=== PATIENT | male | born 1950 | race Caucasian/White ===

== ENCOUNTER 2021-10-02 20:53 | Inpatient (IN) | payer MEDICARE ==
[~2021-10-02] VITALS: Ht 172.7 cm; Wt 97.1 kg
--- NOTE | 2021-10-03 01:00 | NUR ---
PATIENT ARRIVED TO THE UNIT VIA STRETCHER. 2PA TO MOVE PATIENT TO BED. PATIENT IS ALERT. ORIENTED TO SELF AND SURROUNDINGS. LIMITED VERBAL RESPONSE. PATIENT REPORTS PAIN IN HIS BACK WHEN TURNING, UNABLE TO RATE OR DESCRIBE. APPEARS COMFORTABLE AT REST. HOB ELEVATED. VS COLLECTED. ADEQUATE BP. HR 110-120, AFIB. TOLERATING ROOM AIR. ORAL TEMP WNL. MAN IN PLACE. IV FLUIDS STARTED PER ORDER, SITE WNL. MODERATE EDEMA NOTED IN CHITO LOWER EXTREMITIES, SLIGHTLY MORE ON THE LEFT. LEFT GREAT TOE IS PURPLE, POSSIBLY BRUSIES. BOTH FEET ARE COLD. AREA ON GREAT LEFT TOE IS BLANCHABLE. VIEWED AREA, FOUND CHITO PULSES WITH DOPPLER. PATIENT REPORTS TOE IS "JUST A LITTLE DRY" AND DENIED INJURY.
--- NOTE | 2021-10-03 02:19 | NUR ---
patient appears to be sleeping. wakes easily when rn enters the room. vs stable. urine output adequate. patient denied needs. call light in reach.
--- NOTE | 2021-10-03 04:38 | NUR ---
PATIENT RESTING OFF AND ON. DRINKING WATER FREQUENTLY. GOOD URINE OUTPUT. ACCU CHECK, SSI PROVIDED. PATIENT DENIED ANY CONCERNS. VS STABLE.
--- NOTE | 2021-10-03 07:30 | NUR ---
REPORT RECIEVED. PATIENT IS LAYING IN BED WITH HOB ELEVATED. IVF INFUSING AT 200 ML/HR. MAN CATH PATENT WITH CLEAR YELLOW URINE NOTED.
--- NOTE | 2021-10-03 08:00 | NUR ---
ASSESSMENT COMPLETE. C/O GENERAL PAIN, RATES 8/10. IS SLOW TO ANSWERE QUESTIONS. ACCUCHECK 249, 5 UNITS HUMALOG INSULIN GIVEN. REPOSITIONED.
--- NOTE | 2021-10-03 08:30 | NUR ---
REFUSING BREAKFAST. IS SIPPING ON APPLE JUICE AND WATER. REPOSITIONED TO [facility], AT 40 DEGREE ANGLE REFUSING TO LAY ON RIGHT SIDE. C/O BACK PAIN AND R HIP PAIN WELL GENERALIZED PAIN. NO PAIN MEDICATION GIVEN AT THIS TIME. DENIES FELLING SHORT OF BREATH. REMAINS ON RA.
--- NOTE | 2021-10-03 11:00 | NUR ---
DR. FERNANDEZ HERE AND IS REVIEWING TREND OF HR. IS AWARE HR HAS BEEN > 100 MOST OF MORNING. NO FUTHER ORDERS AT THIS TIME. DIGOXIN IS DUE AT NOON. PATIENT CONTINUES TO TAKE SIPS OF WATER AND APPLE JUICE, IS REFUSING LUNCH.
--- NOTE | 2021-10-03 12:00 | NUR ---
ASSESSMENT DONE, PATIENT IS SOMEWHAT DROWSY. CONTINUES TO REFUSE LUNCH. MAN CATH PATENT. IVF DECREASED TO 150 ML/HR PER ORDERS. DIGOXIN 250 MCG IV GIVEN SLOWLY OVER 10 MIN. IS VERY STIFF TO MOVE. PATIENT STATES HE HAS NOT BEEN DOING ANY PHYS THERAPY, ATTEMPED TO DO RANGE OF MOTION, PATIENT VERY RESISTANT.
--- NOTE | 2021-10-03 12:20 | NUR ---
PATIENT DAUGHTER IS HERE TO SEE PATIENT, PATIENT IS RESTFUL.
--- NOTE | 2021-10-03 14:30 | NUR ---
NO CHANGES. IVF INFUSING AT 150 ML/HR. MAN CATH PATENT.
--- NOTE | 2021-10-03 16:00 | NUR ---
ASSESSMENT UNCHANGED. PATIENT NOT TAKING PO WELL THIS AFTERNOON. DENIES NAUSEA, HAS BACK PAIN, ABD PAIN WITH PALPATION. RESISTANT TO REPOSITIONING. REFUISNG ORAL CARE.
--- NOTE | 2021-10-03 16:20 | NUR ---
DR. FERNANDEZ PHONED IN TO CHECK ON PATIENT. ORDERS RECIEVED TO DECREASE IVF TO 50 ML/HR. THIS DONE. NO FUTHER CHANGES.
--- NOTE | 2021-10-03 18:30 | NUR ---
YELLED OUT IN PAIN WHEN ATTEMPTING TO REPOSITION. HAVING INCREASED BACK PAIN WITH MOVEMENT.
--- NOTE | 2021-10-03 19:05 | NUR ---
BLOOD CULTURE RESULTS CALLED TO DR. FERNANDEZ. NO FUTHER ORDRES AT THIS TIME. REPORT TO NEXT SHIFT.
--- NOTE | 2021-10-03 19:30 | NUR ---
RECEIVED REPORT FROM CESAR BAUER. pt RESTING IN BED ON LEFT SIDE. REPORTED 8/10 PAIN IN BACK. OFFERED ASSISTANCE TO REPOSITION, pt REFUSED. WHITEBOARD UPDATED. CALL LIGHT WITHIN REACH.
--- NOTE | 2021-10-03 20:30 | NUR ---
IN TO DO ASSESSMENT. pt RESTING ON LEFT SIDE. ASSESSMENT DONE. FOUND PEDIAL PULSES WITH DOPPLER. PRN PAIN MEDICATION FOR 8/10 BACK PAIN. IV ANTIBIOTIC INFUSING. pt ALLOWED REPOSITIONING MORE ON LEFT SIDE, SUPPORTED BACK WITH PILLOW. MAN CARE DONE. CALL LIGHT WITHIN REACH.
--- NOTE | 2021-10-03 22:10 | NUR ---
PT ARRIVED TO FLOOR VIA STRETCHER. VS COMPLETED. MAGDA WNL. PT REPOSITIONED. JUICE PROVIDED. IV FLUIDS INFUSING PER ORDER. NO OTHER NEEDS. CALL LIGHT IN REACH.
--- NOTE | 2021-10-04 | NUR ---
PT RESTING IN BED. IV FLUIDS INFUSING PER ORDER. CALL LIGHT IN REACH.
--- NOTE | 2021-10-04 02:55 | NUR ---
PT HAS 8/10 BACK PAIN, PRN PAIN MED PROVIDED. PT REPOSITIONED. ASSESSMENT COMPLETED. PT IS CONFUSED ABOUT WHY HE IS HERE, EDUCATION PROVIDED. [facility] 15, ORIENTED TO PERSON AND PLACE ONLY AND PT HAS EXPRESSIVE DYSPHASIA. LUNGS CLEAR ON RIGHT SIDE. LEFT LUNG LOBES HAVE AND EXPIRATORY WHEEZE. IV WNL, IV FLUIDS INFUSING PER ORDER. GENERALIZED EDEMA IN RIGHT HAND. LLE HAS 2+ EDEMA AND RLE HAS 1+ EDEMA. LEFT BIG TOE DOSCOLORATION NOTED, PT DENIES PAIN IN TOE. CMS INTACT WITH DORSAL FOOT PULSES WEAK. SCATTERED ABRASIONS NOTED. AND SOFT, NONTENDER, BOWEL TONES ACTIVE. MAN WNL. APPLE JUICE PROVIDED BY FRANCO MYRICK. NO OTHER NEEDS AT THIS TIME. CALL LIGHT IN REACH.
--- NOTE | 2021-10-04 05:35 | NUR ---
SCHEDULED MEDS PROVIDED. NO OTHER NEEDS. CALL LIGHT IN REACH.
--- NOTE | 2021-10-04 07:30 | NUR ---
REPORT RECIEVED FROM JUANCARLOS SCHRADER. PT AWAKE AND STATES HE IS TIRED.
--- NOTE | 2021-10-04 09:42 | NUR ---
PATIENT REPOSITIONED ON TO LEFT SIDE WITH PILLOW UNDER RIGHT HIP. VITALS AND I&O'S CHARTED. FRESH WATER GIVEN. PATIENT SAID BED BATH MAYBE LATER DEPENDING ON HOW HE FEELS. CALL LIGHT IN REACH. NO FURTHER NEEDS AT THIS TIME.
--- NOTE | 2021-10-04 10:44 | NUR ---
ADMINISTERED TYLENOL AND IV LOPRESSOR. PT RATES PAIN IN FLANKS 9\10. STATES IT FEELS THE SAME THE LAST TIME HE HAD A KIDNEY INFECTION.
--- NOTE | 2021-10-04 11:16 | NUR ---
Kwame states that his only home medication is insulin. Phoned [facility] pharmacy, which he stated was his pharmacy of choice, and they have no fill history. Med rec completed by pharmacy.
--- NOTE | 2021-10-04 11:40 | NUR ---
PT WORKING IWTH OFFICE BOOKKEEPER AFTER WORKING WITH FACTORY MAINTENANCE TECHNICIAN.
--- NOTE | 2021-10-04 12:59 | NUR ---
Per Dr. Torres patient will need to DC to SNF for continued PT. Pt is aware of the plan and states that he has no preference of which SNF to discharge to. He states he will go to [facility], [facility], [facility], or [facility], depending on where placement can be found. Pt reports that he has had a stroke and that if we have any medical questions regarding advanced directive or POLST form, we should talk to his daughter Haim Mariee. Pt will not discharge today. Pt does not have any questions for me at this time.
--- NOTE | 2021-10-04 13:50 | NUR ---
PATIENT IN BED WATCHING TV. VITALS AND I&O'S CHARTED. MAN CATH TAKEN OUT UPON MD DC ORDER AND RN REQUEST, RN NOTIFIED WHEN DONE. CALL LIGHT IN REACH. NO FURTHER NEEDS AT THIS TIME. PATIENT REFUSED BED BATH AT THIS TIME.
--- NOTE | 2021-10-04 13:51 | NUR ---
PT ALERT, TV ON. PT HAS FLAT AFFECT, BUT DOES ANSWER APPROPRIATELY. PT DID MENTION HE HAS HAD LITLE SLEEP, AND HIS PAIN IS A 9. PASSED THIS INFO ON TO JUANCARLOS RIDER. SHE WILL SEE IF HE CAN HAVE SOMETHING FOR PAIN. GAVE BLESSING, AND ENCOURAGEMENT. WILL FOLLOW
--- NOTE | 2021-10-04 14:28 | NUR ---
SPOKE WITH DAUGHTER AGAIN. STATES THAT HER DAD CAN GET UP AND WALK AROUND, SHOWERS SELF AND TAKES SELF TO RESTROOM.
--- NOTE | 2021-10-04 16:10 | NUR ---
ROLLED PT IN BED TO CHANGE CHUCKS UNDERNEATH HIM. PT WAS IRRITATED THAT HIS DAUGHTER HAD TOLD US THAT HE CAN WALK. DOES NOT WANT TO GET UP TO USE THE COMMODE OR SIT INTHE CHAIR.
--- NOTE | 2021-10-04 18:28 | NUR ---
PT ASSISTED TO PIVOT TO COMMODE AND THEN CHAIR. WHERE HE SAT FOR 1.5 HOURS. PT TOLERATED WELL ALTHOUGH DID NOT LIKE. PT THEN CALLED HE HAD A BM IN THE CHAIR. CLEANED UP AND ASSISTED BACK TO BED. HAD ALSO DUMPED URINE OUT OF THE URINAL INTO THE BED PRIOR TO BSC.
--- NOTE | 2021-10-04 19:29 | NUR ---
REPORT RECEIVED FROM JUANCARLOS RIDER. HR 78-85 ON TELE 6. pt RESTING IN BED.
--- NOTE | 2021-10-04 20:32 | NUR ---
pt INCONTINENT OF URINE. ATTENDS CHANGED. REPOSITIONED HIGHER IN BED AND TO RIGHT SIDE WITH PILLOW UNDER LEFT HIP. NO REDNESS NOTED ON BACKSIDE. ASSESSMENT COMPLETE. IV SITE FLUSHED WNL AND IV ANTIBIOTIC INFUSING ORDERED. VSS. SCHEDULED MEDICATION ADMINISTERED. pt C/O 07/06 PAIN IN BACK. PRN TYLENOL ADMINISTERED. CALL LIGHT IN REACH. LEGS ELEVATED.
--- NOTE | 2021-10-04 22:11 | NUR ---
PT CALLED, ABX COMPLETE. ASSISTED WITH HIS SNACK. NO OTHER NEEDS AT THIS TIME.
--- NOTE | 2021-10-04 23:28 | NUR ---
PATIENT CALLED. ASKED SOMETHING TO EAT AND DRINK. DIET SODA, ICE WATER AND CRACKERS PROVIDED.
--- NOTE | 2021-10-05 00:32 | NUR ---
pt RESTING IN BED AWAKE. ASSISTED TO DRINK WATER. NO ADDITIONAL NEEDS. CALL LIGHT IN REACH.
--- NOTE | 2021-10-05 02:23 | NUR ---
IN pt ROOM FOR MEDICATION ADMINISTRATION. HR 88-100S. IRREGULAR RHTYHM, AFIB ON TELE 6. ASSESSMENT COMPLETE. pt RATES PAIN 8/10 IN MID BACK. PRN TYLENOL ADMINISTERED. INCONTINENT OF URINE, RUSH PAD CHANGED. pt REPOSITIONED TO FLOATING, PILLOWS UNDER BOTH HIPS. pt GRIMACES WITH MOVEMENT. DIET SPRITE PROVIDED. NO ADDITIONAL NEEDS. CALL LIGHT IN REACH.
--- NOTE | 2021-10-05 06:42 | NUR ---
PT AWAKE AFTER LAB DRAW. 2PA TO CHANGE ATTENDS AND CHUX, INCONTINENT OF URINE. REPOSITIONED IN BED WITH PILLOW UNDER LEFT HIP TO RIGHT SIDE LYING. HOB ELEVATED. PRN PAIN MEDICATION ADMINISTERED FOR 8/10 REPORTED BACK PAIN. pt HEAVY ASSIST WITH TURNS. ICE WATER PROVIDED. CALL LIGHT IN REACH.
--- NOTE | 2021-10-05 07:05 | NUR ---
Report received from Suki BAUER, pt resting in bed with no needs, will continue plan of care
--- NOTE | 2021-10-05 08:00 | NUR ---
PATIENT UP TO CHAIR, 2PA GAITBELT. LINENS CHANGED. WARM BLANKET GIVEN. RUSH CARE DONE. NEW ATTENDS IN PLACE. CALL LIGHT IN REACH. NO FURTHER NEEDS AT THIS TIME.
--- NOTE | 2021-10-05 08:05 | NUR ---
Scheduled medications administered, CBG checked, SS insulin provided. Assessment complete. Pt transfers with 2PA, gait belt and FWW to chair for breakfast. SN Marina in room to assist. IV WNL. VSS complete.
--- NOTE | 2021-10-05 10:00 | NUR ---
Spoke with Kwame and discussed what his needs and wants are. Let him know I had spoken with his daughter earlier. She states he cares for self at home. He walks in the home and has a walk in shower. Pt is able to shower self and Edelmira helps him dress his lower body. Pt is telling therapies he is unable to walk. Pt states he is wanting placement. We discussed placement would be for PT and he will need to participate. We then discussed if he is wanting placement for cg, he would need an assisted living. Pt states he cannot pay. We discussed medicaid and steps to proceed with eval through [facility]. Pt wanting daughter to do this for him. States he doesn't know how to get access to his financials. Per daughter she has access on her phone. Daughter will contact Davina L[facility]. I recieved a message from [facility] and they had questions regarding pt. Attempted to return call, but unable to contact. Will follow up to check if they are accepting this pt.
--- NOTE | 2021-10-05 10:45 | NUR ---
IV ABX infusing WNL, one time dose 12.5mg metoprolol administered per verbal order from MD for sustained HR 120-140s. Echo complete. Pt repositioned in bed and tele in place, call light in reach
--- NOTE | 2021-10-05 12:00 | NUR ---
CBG checked, SS insulin provided, pt denies lunch at this time but drinks diabetic friendly ensure.
--- NOTE | 2021-10-05 12:38 | NUR ---
JUANCARLOS ST JSUT LEAVING RM, BUT WILL BE COMING BACK. SN IN RM WITH PT. PT LAYING ON L SIDE, VERY FEEBLE RESPONSE. JUANCARLOS ST NEEDING TO CONTINUE CARE GAVE BLESSING AND ENCOURAGEMENT. WILL FOLLOW
--- NOTE | 2021-10-05 13:10 | NUR ---
Attempted to call Berkley at [facility]. She is gone for lunch. Will call her later. Received a call from pts daughter and she has not been able to reach [facility], clarified phone number and gave her the correct number.
--- NOTE | 2021-10-05 14:07 | NUR ---
PATIENT HAD INCONT. VOID. THIS CREEL CLERK AND AERONAUTICS TEACHER IN TO CHANGE PATIENT. [facility] CARE DONE. NEW ATTENDS IN PLACE. VITALS TAKEN BY AERONAUTICS TEACHER. CALL LIGHT IN REACH. NO FURTHER NEEDS AT THIS TIME.
--- NOTE | 2021-10-05 15:07 | NUR ---
Scheduled lopressor and IV ABX infusing. Pt resting in bed watching tv and resting. States no needs at this time. Grimace noted when raised HOB to take pills, pt states tolerable pain level and denies needing PRN. Call light in reach
--- NOTE | 2021-10-05 17:03 | EKG ---
[facility] [address] [place], [place] [address] Signed Atrial fibrillation with rapid ventricular response Left axis deviation Right bundle branch block Inferior infarct , age undetermined Abnormal ECG No previous ECGs available Confirmed by BRUCE SHAH DO ([id number]) on 10/05/2021 5:03:21 PM Electronically Signed By: BRUCE SHAH DO 10/05/21 1703 PATIENT NAME: RUBIN ZHANG Electrocardiogram DATE OF : 54 PHYSICIAN: BRUCE SHAH DO REPORT #: [id number] REPORT IS CONFIDENTIAL AND NOT TO BE RELEASED WITHOUT AUTHORIZATION
--- NOTE | 2021-10-05 17:30 | NUR ---
medications administered, pt resting in bed, drowsy but oriented, IVF infusing WNL
--- NOTE | 2021-10-05 18:57 | NUR ---
PATIENT IN BED RESTING. PATIENT HAD INCONT. VOID. RUSH CARE DONE. NEW ATTENDS IN PLACE. VITALS AND I&O'S CHARTED. FRESH WATER GIVEN. CALL LIGHT IN REACH. NO FURTHER NEEDS AT THIS TIME.
--- NOTE | 2021-10-05 19:24 | NUR ---
REPORT RECEIVED FROM JUANCARLOS ST. pt RESTING IN BED. NO DISTRESS NOTED. HR IIREGULAR 81-89 ON TELE.
--- NOTE | 2021-10-05 21:46 | NUR ---
PT INCONTINENT OF URINE, ATTENDS AND CHUX CHANGED. LARGE VOID. 2PA WITH RAMEZ GAMEZ TO REPOSITION IN BED, PILLOWS UNDER LEFT HIP AND LEGS ELEVATED. ASSESSMENT COMPLETE. pt RATES PAIN 8/10 IN BACK. PRN TYLENOL ADMINISTERED. IV SITE FLUSHED WNL, IV ANTIBIOTIC INFUSING WNL. CALL LIGHT IN REACH. pt REQUESTING YOGURT, GLOBAL HUMAN RESOURCES DIRECTOR RN NOTIFIED.
--- NOTE | 2021-10-05 21:55 | NUR ---
NEGRA WARNER. PATIENT REPOSITIONED TO HIS LEFT SIDE.
--- NOTE | 2021-10-06 00:35 | NUR ---
CHECKED ON pt. RESTING IN BED ON LEFT SIDE, BREATHING UNLABORED. NO DISTRESS NOTED.
--- NOTE | 2021-10-06 02:20 | NUR ---
pt SLEEPING, AWAKENS TO VOICE FOR SCHEDULED MEDICATION ADMINISTRATION. VSS. ASSESSMENT COMPLETE. pt DENIES PAIN. ATTENDS CHANGED, INCONTINENT OF URINE. REPOSITIONED TO FLOATING WITH PILLOWS UNDER BOTH HIPS. IV SITE FLUSHED WNL, IV ANTIBIOTIC INFUSING. CALL LIGHT WITHIN REACH. LIGHTS OFF IN ROOM.
--- NOTE | 2021-10-06 06:51 | NUR ---
pt SLEEPING, AWAKENS TO VOICE. IV ANTIBIOTIC INFUSING WNL. INCONTINENT OF LARGE VOID. ATTENDS AND CHUX CHANGED. REPOSITIONED IN BED. PILLOW UNDER RIGHT HIP. CALL LIGHT IN REACH. ICE WATER PROVIDED.
--- NOTE | 2021-10-06 06:55 | NUR ---
V/S AND I&O DONE. 2 PA CHANGED ATTENDS. APPLIED BARRIER CREAM. PATIENT REPOSTIONED TO HIS COMFORT. PATIENT DO NOT WANT TO HAVE BREAKFAST ORDER.
--- NOTE | 2021-10-06 07:16 | NUR ---
Report received from Suki BAUER. Pt resting in bed, no needs identified at this time, call light in reach. Will continue plan of care
--- NOTE | 2021-10-06 07:35 | NUR ---
CBG checked 148. Pt signs MRI consent witnessed by this RN. Breakfast ordered. Pt awakens to voice and answers questions after asked several times. Pt agreeable to plan of care.
--- NOTE | 2021-10-06 08:20 | NUR ---
PT SLEEPING. UPDATED WHITE BOARD. WILL CHECK BACK IN WITH PT SHORTLY. CALL LIGHT WITHIN REACH.
--- NOTE | 2021-10-06 09:15 | NUR ---
SS insulin provided, 10 unit scheduled held for CBG of 148, pt has been refusing meals, will drink ensure. Pt reports 10/10 back pain with roll change of attends, PRN tylenol administered. Pt prepares to go to MRI. MD notified of pain level and 2mg morphine administered as a one time order. Pt tearful and states he is "requesting euthanasia". This RN reassures patient and discusses care plan, pt is agreeable at this time. He states his daughter, Edelmira, may be able to come visit him. This RN called Edelmira and she states she will come in or call him today.
--- NOTE | 2021-10-06 10:30 | NUR ---
IV ABX infusing, pt resting in bed after MRI, lunch ordered. pt is agreeable at this time and states no needs. Fresh water provided, call light in reach
--- NOTE | 2021-10-06 10:40 | NUR ---
Spoke with Dr. Bishop and pt will not be dischargable for 1-2 more days. Pt will need IV antibiotics for 2 weeks. Called and updated Berkley at [facility].
--- NOTE | 2021-10-06 11:15 | NUR ---
Discussed plan of care with patient's daughter Edelmira. She is concerned patient is depressed and does not want to continue treatment. Edelmira is agreeable to plan of care at this time, states she will come in to see her father tomorrow.
--- NOTE | 2021-10-06 12:00 | NUR ---
Update from Dr. Bishop. Pt has abcesses in his back. He will call daughter to discuss.
--- NOTE | 2021-10-06 12:30 | NUR ---
CBG checked, SS insulin administered. Pt lunch delivered. Pt drowsy but answers questions appropriately.
--- NOTE | 2021-10-06 13:07 | NUR ---
ENTERED PT'S RM WHILE JUANCARLOS ST WAS CARING FOR PT. IS WAS IN BED, VERY FLAT AFFECT. BARELY COULD GET A RESPONSE FROM PT. DID ACKNOWLEDGED PAIN AT AN 8. JUANCARLOS ST WILL FOLLOW UP. PT ALSO GOT LITTLE SLEEP.HAD PRAYER WITH PT, WILL FOLLOW.
--- NOTE | 2021-10-06 14:19 | NUR ---
PT STILL WORKING ON LUNCH. WILL RETURN FOR I&O'S SOON. PT EATING AND SLEEPING INTERMITTENTLY. CALL LIGHT WITHIN REACH, NO FURTHER NEEDS AT THIS TIME
--- NOTE | 2021-10-06 14:30 | NUR ---
Medicated patient with 10mg PRN oxycodone. He states he is still having 8/10 pain to back, repositioned in bed. No further needs, call light in reach.
--- NOTE | 2021-10-06 14:54 | NUR ---
PT REFUSED BED BATH. JUANCARLOS ST NOTIFIED.
--- NOTE | 2021-10-06 17:30 | NUR ---
THIS OFFICE ELECTRICIAN AND JUANCARLOS ST GAVE PT BB WHILE CHANGING PT'S BRIEF. PT NOW IN CLEAN GOWN WITH DINNER TRAY.
--- NOTE | 2021-10-06 18:03 | NUR ---
CBG checked, insulin provided to patient. Dinner brought in, pt refuses dinner but drinks ensure. VS and I/O's complete. Attends changed, elsie care done, bed bath complete with AERONAUTICAL DESIGN ENGINEER assistance. IV ABX infusing. Warm blanket provided. Call light in reach.
--- NOTE | 2021-10-06 19:30 | NUR ---
SHIFT REPORT RECEIVED FROM DINA BAUER. PT RESTING IN BED. IV MEDS INFUSING. NO NEEDS AT THIS TIME. CALL LIGHT IN REACH.
--- NOTE | 2021-10-06 20:42 | NUR ---
ASSESSMENT, VS AND I&O COMPLETED. PT ORIENTED TO PERSON AND PLACE. ANSWERS YES/NO QUESTIONS. BACK PAIN 6/10, PRN PAIN MED PROVIDED. SCHEDULED MEDS PROVIDED. LUNGS CLEAR IN UPPER LOBES AND CLEAR/DIM IN LOWER LOBES. HEART TONES REGULAR. ABD SOFT, NONTENDER, BOWEL TONES ACTIVE. PT MOANS IN PAIN WITH REPOSITIONING. CMS INTACT. LLE 2+ EDEMA, RLE 1+ EDEMA. LEFT GREAT TOE DISCOLORATION NOTED. IV WNL, CDI, FLUSHED WELL. NO OTHER NEEDS. CALL LIGHTIN REACH.
--- NOTE | 2021-10-06 21:20 | NUR ---
provided pt with ensure plus, pt drank all of ensure and some water.
--- NOTE | 2021-10-06 22:27 | NUR ---
SCHEDULED MED PROVIDED. NO OTHER NEEDS. CALL LIGHT IN REACH.
--- NOTE | 2021-10-07 00:01 | NUR ---
PT RESTING IN BED. IV MED COMPLETED. IV WNL. PT REPOSITIONED. CALL LIGHT IN REACH.
--- NOTE | 2021-10-07 02:05 | NUR ---
VS COMPLETED. SCHEDULED MEDS PROVIDED. IV WNL. PT REPOSITIONED. WATER PROVIDED. NO OTHER NEEDS. CALL LIGHT IN REACH.
--- NOTE | 2021-10-07 04:10 | NUR ---
IV PUMP ALARMING, RESOLVED. IV WNL. ASSESSMENT COMPLETED. PT DENIES PAIN., DECLINES WATER AND DECLINES TO BE REPOSITIONED. LUNGS CLEAR AND DIM IN ALL LOBES. LLE 2+, RLE 1+ EDEMA. LEFT GREAT TOE UNCHANGED, DENIES PAIN. NO OTHER NEEDS. CALL LIGHT IN REACH.
--- NOTE | 2021-10-07 06:01 | NUR ---
VS AND I&O COMPLETED. ICE WATER PROVIDED. PT BRIEFS CHANGED,VERY PAINFUL FOR PT TO ROLL SIDE TO SIDE. REPOSITIONED. PT TEARFUL THIS MORNING. NO OTHER NEEDS. CALL LIGHT IN REACH.
--- NOTE | 2021-10-07 07:59 | NUR ---
IN TO SEE PT AM MEDS AND ASSESSMENT DUE. PT LAYING ON LEFT SIDE. BREAKFAST DELIVERED TO ROOM. PATIENT REPORTS 8/10 PAIN TO BACK, PT REPORTS PAIN IS TOELRAABLE, DECLINES PAIN MANAGEMENT AT THIS TIME. PT RESPONSVIVE AND VERBALIZING NEEDS AND RESPONSES APPROPIATE. NO OTHER CONCENRS OR REQUESTS A T THIS TIME. PT EATING BREAKFAST ATT HSI TIME. BED RAILS X 2 UP. CALL LIGHT IN REACH.
--- NOTE | 2021-10-07 09:15 | NUR ---
PT. C/O FEELING "HOT". WHEN ASSESSED, HE STATES HIS RT. GROIN FEELS WARM AND PAINFUL. GROIN IS REDDENED. ATTENDS CHANGED, PT. CLEANED AND BARRIER CREAM APPLIED. PT. ASSISTED WITH REPOSITIONING. PT. LEFT RESTING WITH CALL LIGHT IN REACH.
--- NOTE | 2021-10-07 09:31 | NUR ---
IN TO CHECK ON PT. PT REPORTED TO NURSING INSTRUCTED "I AM BURNING." PT REPORTED TO CHALINO RN "I AM BURNING IN MY GROUIN." GROIN ASSESSED. RUSH AREA CLEANED AND HAS WITH SOME REDNESS LIKLY R/T BRIEF BEING TOO TIGHT. BARRIER CRAM APPLIED AND BRIEF LOOSENED. PT REPOSTIONED MORE TO THE LEFT SIDE. GOWN CHANGED. NO SKIN BREAKDOWN NOTED TO BACK OR BUTTOCKS AT THIS TIME. NO OTHER CONCERNS OR REQUESTS AT THIS TIME. BED RAILS X 4 UP. CALL LIGHT IN REACH.
--- NOTE | 2021-10-07 11:35 | NUR ---
IVF STARTED. HORSEBACK RIDING INSTRUCTOR IN THE ROOM DRAWING BLOOD CULTURES. PT. DENIES PAIN AT THIS TIME. CONTINUES TO BE DIAPHORETIC, BUT AFEBRILE. LEFT RESTING WITH CALL LIGHT IN REACH
--- NOTE | 2021-10-07 12:10 | NUR ---
PT. ASSISTED BY 2 RNS TO REPOSITION. HE STATES "I'M NOT DOING WELL" AND RATES BACK PAIN /. OXYCODONE ADMIN. PT. ASSISTED WITH LUNCH. HE IS ABLE TO HOLD FORK, BUT HAS TROUBLE KEEPING FOOD ON IT. ASSISTED WITH EATING. PT. CONTINUES TO BE DIAPHORETIC BUT IS AFEBRILE. LEFT RESTING WITH CALL LIGHT IN REACH.
--- NOTE | 2021-10-07 13:09 | NUR ---
IN TO CHECK ON PT. PT LAYING ON HIS LEFT SIDE WITH EYES CLOSED. PT WAKENS EASILY TO VOICE STIMULI. PT REPORTED "I AM DONE, I DONT THINK I WANT ANYMORE." PT REQUEST FRESH ICE WATER, THIS NURSE BROUGHT IN FRESH ICE WATER FOR PT. PT ACCEPTED 100% ENSURE AND 10% OF HIS LUNCH. NO OTHER CONCERNS OR REQUESTS AT THIS TIME. BED RAILS X 4 UP. CALL LIGHT IN REACH.
--- NOTE | 2021-10-07 13:50 | NUR ---
PT ASLEEP, DID NOT DISTURB. WILL CHECK BACK
--- NOTE | 2021-10-07 14:29 | NUR ---
Attempted to see pt at 1145 and he is sleeping. Called daughter now and discussed moth exterminator plan. She cont. to want to hear what a neurologist would recommend. She feels like her father will decline any treatment. She states she has a baby and is 4 months and she will not be able to provide care for her dad if he is unable to walk. She has not contacted [facility] to start the process for medicaid. I again encouraged her to do this as it is a 45 day process. She is stating pt does not have money to pay the first month out of pocket. She states pt cannot return home on hospice and would like him placed to SNF or [facility]. She states she will contact [facility] tomorrow to start eval for medicaid. We did discuss she may need to take her father home for a brief time until arrangements can be made for payment to an [facility].
--- NOTE | 2021-10-07 16:32 | NUR ---
pt. reports 09/05 backpain. admin. oxycodone. assisted with repositioning. left resting with call light in reach
--- NOTE | 2021-10-07 16:40 | NUR ---
PT. C/O 09/05 BACK PAIN. ADMIN. OXYCODONE. ATTENDS AND CHUX SATURATED. PT. CLEANED, CHANGED AND BARRIER CLEAN APPLIED. HE WAS THEN REPOSITIONED. DENIES FURTHER NEEDS. LEFT RESTING WITH CALL LIGHT IN REACH.
--- NOTE | 2021-10-07 19:15 | NUR ---
NEREIDA HELPED ME CHANGED THE PATIENT. DID [facility]. PUT CREAM ON.
--- NOTE | 2021-10-07 19:23 | NUR ---
SHIFT REPORT RECEIVED FROM CHALINO BAUER. PT RESTING IN BED. IV FLUID INFUSING PER ORDER. NO OTHER NEEDS. CALL LIGHT IN REACH.
--- NOTE | 2021-10-07 19:34 | NUR ---
ASKED PATIENT IF HE WOULD LIKE TO TAKE A BED BATH TODAY AND HE SAID NO. DID HIS BLOOD SURGAR CHECKS BREAKFAST, LUNCH AND DINNER.
--- NOTE | 2021-10-07 20:30 | NUR ---
IN TO GET VITALS, ICE WATER FILLED, PT HAD SMALL INCONT IN PERIPAD, CHANGED, PT DENIED WANTING REPOSITIONING, NO FURHTER NEEDS AT THIS TIME
--- NOTE | 2021-10-07 20:58 | NUR ---
ASSESSMENT, VS AND I&O COMPLETED. IV WNL, CDI, FLUSHED WELL. IV FLUIDS INFUSING PER ORDER. RUSH PADS CHANGED, PT DECLINES TO BE REPOSITIONED. ICE WATER PROVIDED. SCHEDULED MEDS PROVIDED. PT DENIES PAIN AT REST. LUNGS CLEAR BUT DIM IN ALL LOBES. HEART TONES REGULAR. ABD SOFT, NONTENDER, BOWEL TONES ACTIVE. CMS INTACT. LEFT GREAT TOES BRUISING NOTED. LLE 2+ EDEMA, RLE 1+ EDEMA, RIGHT HAND GENERALIZED EDEMA. NO OTHER NEEDS. CALL LIGHT IN REACH.
--- NOTE | 2021-10-07 21:59 | NUR ---
pt repositioned. scheduled med provided. iv wnl. no other needs. call light in reach.
--- NOTE | 2021-10-08 00:05 | NUR ---
ASSISTING PT WITH WATER, GUIDED PT'S HAND AND CUP UP TO MOUTH PT LIFTED, PT MAINTAING ROUGH ROUNDER ON CUP WHILE THIS SHOE REPAIR COBBLER TRIED TO GET PT TO SET CUP ON TABLE, TABLE CLOSER FOR PT TO REACH CUP NEEDED, PT REQUESTING HOB REMAINING UP, NO FURTHER NEEDS AT THIS TIME
--- NOTE | 2021-10-08 00:06 | NUR ---
IV PUMP ALARMING, NEW BAG OF IV FLUIDS PROVIDED. PT REPOSITIONED. ICE WATER PROVIDED. NO OTHER NEEDS. CALL LIGHT IN REACH.
--- NOTE | 2021-10-08 02:10 | NUR ---
SCHEDULED MED PROVIDED. ICE WATER PROVIDED. RUSH PAD CHANGED. PT DENIES PAIN AT REST, HAS PAIN WITH REPOSITIONING BUT DECLINES MEDICATION FOR PAIN. IV WNL. NO OTHER NEEDS. CALL LIGHT IN REACH.
--- NOTE | 2021-10-08 04:20 | NUR ---
IN TO GET VITALS, CHANGED PTs ATTENDS AND NEW CHUX IN PLACE, WATER PROVIDED, NO FURTHER NEEDS
--- NOTE | 2021-10-08 04:52 | NUR ---
ASSESSMENT, VS AND I&O COMPLETED. PT REPOSITIONED AND BRIEFS CHANGED. THIS WAS VERY PAINFUL, 10/10 FOR PT. PRN PAIN MED PROVIDED. PT CRYING, THERAPUTIC COMMUNICATION PROVIDED. PT IS TALKING MORE THIS MORNING. LUNGS CLEAR AND DIM IN ALL LOBES. ABD FIRM, NONTENDER, BOWEL TONES ACTIVE. PT STATES YES WHEN ASKED IF HE FEELS CONSTIPATED, NIO BOWEL ROUTINE STARTED. GROIN AND TESTES HAVE REDNESS, BARRIER CREAM APPLIED. COCCYX RED BUT BLANCAHABLE. LEFT GREAT TOE UNCHANGED. CMS INTACT. ICE WATER PROVIDED. IV WNL, IV FLUIDS INFUSING PER ORDER. NO OTHER NEEDS. CALL LIGHT IN REACH.
--- NOTE | 2021-10-08 05:43 | NUR ---
SCHEDULED MED PROVIDED. PT RESTING WITH EYES CLOSED. RR EVEN, UNLABORED. CALL LIGHT IN REACH.
--- NOTE | 2021-10-08 06:41 | NUR ---
PT DECLINES REPOSITIONING. CHAPSTICK PROVIDED. DRINK PROVIDED. BREAKFAST ORDER COMPLETED. NO OTHER NEEDS. CALL LIGHT IN REACH.
--- NOTE | 2021-10-08 06:50 | NUR ---
IN TO CHANGE PT WITH SECOND TECHNICAL PRODUCT MANAGER'S ASSISTANCE, FLOATED PT WITH PILLOW TO BOTH HIPS, NO FURTHER NEEDS AT THIS TIME
--- NOTE | 2021-10-08 08:00 | NUR ---
Shift report received from JUANCARLOS Corcoran, pt resting in bed safely w/ call light in reach, pt denies any needs at this time.
--- NOTE | 2021-10-08 10:00 | NUR ---
Pt resting in bed safely w/ call light in reach. Pt declined to eat breakfast but was agreeable to drinking an ensure. Pt incont of urine, RAMEZ Canales and this nurse performed elsie care and changed attends. Pt repositioned higher in the bed and turned onto left side, floated w/ pillows. Morning assesment complete, scheduled meds given, and IV fluids and abx infusing per provider orders. Pt denies any other needs at this time
--- NOTE | 2021-10-08 10:00 | NUR ---
Attempted to speak with pt, eyes are open, but he does not response to conversation. Spoke with Davina Lira from [facility] and she has been contacted by daughter. Updated pt will need SNF for 6 weeks antibiotics and she let me know it should not be a problem for medicaid and asked I pass this on the [facility]. Attempted to call Berkley at the SNF, she is not in today. Will fax updated notes.
--- NOTE | 2021-10-08 11:54 | NUR ---
PATIENT REFUSING TO EAT SOME MEALS OR EATS ONLY 10% BUT WILL DRINK ENSURE. HE IS ON A 60 GM CONSISTENT CARB DIET. CONTINUE TO PROVIDE ENSURES DUE TO POOR FOOD INTAKE.
--- NOTE | 2021-10-08 12:00 | NUR ---
Pt resting in bed safely w/ call light in reach. Pt denies any needs at this time
--- NOTE | 2021-10-08 12:08 | NUR ---
CHECKED ON PT-COULD NOT GET A RESPONSE FROM HIM. AN OCCASIONAL MOAN, OPEN AN EYE. COULD NOT GET PT TO RESPOND. GAVE CAPRICEING, WILL FOLLOW
--- NOTE | 2021-10-08 14:30 | NUR ---
PT RESTING IN BED SAFELY W/ CALL LIGHT IN REACH, PT INCONT OF URINE, RAMEZ CARR AND THIS NURSE PERFORMED RUSH CARE AND CHANGED ATTENDS. VSS ON RA, IV FLUIDS AND ABX INFUSING PER PROVIDER ORDERS.
--- NOTE | 2021-10-08 16:00 | NUR ---
PT RESTING IN BED W/ CALL LIGHT IN REACH. BED BATH COMPLETED BY THIS NURSE AND TRIM CARPENTER BRUNO, LINENS AND GOWN CHANGED. PT REPOSITIONED HIGHER IN THE BED AND FLOATED WITH PILLOWSON BOTH SIDES. PT DENIED PAIN OR ANY OTHER NEEDS AT THIS TIME.
--- NOTE | 2021-10-08 18:00 | NUR ---
Pt HAS REFUSED TO EAT ALL MEALS TODAY BUT HAS DRANK ENSURES INSTEAD. Pt VERY FLAT AND WITHDRAWN, HAS DECLINED TO WORK W/ PT OR OT TODAY AND NEEDS MULTIPLE PROMTS TO RESPOND TO QUESTIONS OR TO FOLLOW COMMANDS. PT NOW REQUIRING 1L O2 VIA NC DUE TO SHALLOW BREATHING.
--- NOTE | 2021-10-08 19:21 | NUR ---
Sayra care was done. Arms and both hips are floated. Call light is in reach.
--- NOTE | 2021-10-08 21:00 | NUR ---
PATIENT IS FLOATED UP ON PILLOWS AND IS RESTING QUIETLY. RESPIRATIONS ARE REGULAR AND EVEN, EYES ARE CLOSED, AND CALL LIGHT IS IN REACH. PATIENT HAS NO CURRENT CARE NEEDS AT THIS TIME.
--- NOTE | 2021-10-08 23:09 | NUR ---
PATIENT TURNED TO HIS RIGHT SIDE AFTER ATTENDS CHANGED FOR LARGE INCONTINENCE OF URINE. PATIENT GIVEN TYLENOL AND OXYCODONE FOR 5/10 PAIN. PATIENT NONVERBAL THOUGH DRANK FLUIDS WHEN GLASS HELD FOR HIM. PATIENT HAS ALMOST CONSTANT GRIMACE AND IS REAL TENSE AND STIFF WHEN TURNING. PATIENT HAS NO OTHER NEEDS AT THIS TIME. CALL LIGHT IS IN REACH.
--- NOTE | 2021-10-09 00:49 | NUR ---
PATIENT RESTING QUIETLY ON HIS RIGHT SIDE ON 2L/NC. RESPIRATIONS REGULAR AND EVEN, EYES CLOSED, AND CALL LIGHT IS IN REACH.
--- NOTE | 2021-10-09 02:30 | NUR ---
IN TO GET VITALS, PT REQUESTS FRESH ICE WATER, PROVIDED, PT DENIES NEED FOR REPOSITIONING AND DENIES INCONT AT THIS TIME, WILL BE BACK IN TO CHECK ON PT WITH RN SHORTLY
--- NOTE | 2021-10-09 03:15 | NUR ---
PATIENT DENIES PAIN. PATIENT PULLED UP TO THE TOP OF THE BED AND FLOATED UP OFF BUTTOCKS AND SHOULDERS WITH PILLOWS AFTER ATTENDS WERE CHANGED FOR URINARY INCONTINENCE. PATIENT'S ICE WATER REFILLED AND THIS RN HELPED PATIENT DRINK. VS ARE STABLE AND CALL LIGHT IS IN REACH.
--- NOTE | 2021-10-09 05:05 | NUR ---
PATIENT RESTING QUIETLY IN LOW FOWLERS POSTION, EYES ARE CLOSED, RESPIRATIONS ARE REGULAR AND EVEN, CALL LIGHT IS IN REACH.
--- NOTE | 2021-10-09 06:29 | NUR ---
PATIENT INCONTINENT AGAIN AND ATTENDS CHANGED. PATIENT REPOSITIONED TO HIS LEFT SIDE. PATIENT DENIES PAIN AND DENIES ANY NEEDS AT THIS TIME. CALL LIGHT IS IN REACH. VS HAVE BEEN STABLE ALL NIGHT AND PATIENT HAS HAD GOOD URINE OUTPUT. LUNGS ARE CLEAR AND A LITTLE DIM. PATIENT REMAINS ON 2L/NC. CALL LIGHT IS IN REACH.
--- NOTE | 2021-10-09 07:31 | NUR ---
Report received from Luis BAUER. Pt resting in bed with 2L NC O2 in place. Respirations even and unlabored. No needs identified. Will continue plan of care.
--- NOTE | 2021-10-09 08:15 | NUR ---
SS insulin and medications administered. VSS, pt responds only with head nod/shake to yes/no questions. Drinks ensure and juice with miralax. BLE edematous, R 3+ and L 2+. HR irregular, distant. Lungs dim. On 2L NC 02, SPO2 96%, titrated to 1L at this time. Call light in reach.
--- NOTE | 2021-10-09 09:55 | NUR ---
PATIENT IN BED RESTING AT THIS TIME. PATIENT ATE 2 PIECES OF MARTINEZ AND DRANK A WHIOLE ENSURE PLUS FOR BREAKFAST. VITALS AND I&O'S CHARTED. PATIENT HAD INCONT. VOID, RUSH CARE DONE, NEW RUSH PAD IN PLACE. CALL LIGHT IN REACH. NO FURTHER NEEDS AT THIS TIME.
--- NOTE | 2021-10-09 10:05 | NUR ---
IV ABX infusing WNL. Pt resting in bed with BLE elevated. Lunch ordered. Warm blankets provided. pt has no further needs, call light in hand.
--- NOTE | 2021-10-09 12:30 | NUR ---
SS insulin administered, lunch provided to patient who is able to sit up and feed himself. He also drinks a whole ensure. He states no needs.
--- NOTE | 2021-10-09 13:32 | NUR ---
PATIENT IN BED RESTING. VITALS AND I&O'S CHARTED. INCONT. VOID, RUSH CARE DONE, NEW ATTENDS IN PLACE. CALL LIGHT IN REACH. FRESH WATER GIVEN. NO FURTHER NEEDS AT THIS TIME.
--- NOTE | 2021-10-09 15:08 | NUR ---
Scheduled medications administered, assessment complete. Pt resting in bed. When asked if he is having pain he nods yes. He begins a sentence with "I need.." and does not finish. This RN remains at bedside. Pt makes eye contact, able to hold water cup and take pills whole. PRN pain medication administered. IV ABX infusing WNL. Repositioned before exiting room, call light in reach.
--- NOTE | 2021-10-09 18:06 | NUR ---
PATIENT HAD INCONT. VOID. RUSH CARE DONE. NEW ATTENDS IN PLACE. PATIENT REPOSITIONED ONTO RIGHT SIDE WITH PILLOWS UNDER LEFT SIDE. RUSH AREA, LEFT LEG, AND RIGHT HAND MORE SWOLLEN THEN EARLIER, RN IN ROOM AND AWARE. VITALS AND I&O'S CHARTED. CALL LIGHT IN REACH. NO FURTHER NEEDS AT THIS TIME.
--- NOTE | 2021-10-09 18:17 | NUR ---
Scheduled IV ABX infusing. Pt continually belching, this RN asks patient if he feels nauseated and he nods, nods in agreement for PRN medication, IV zofran administered. Changed pt attends for incontinent void/BM, penile and scrotal edema noted along with worsening 3+ edema to L leg and L thigh. Placed pillows under L hip and back. Elevated BLE, and RUE as it is also 3+ edematous. IV WNL, not leaking or signs of infiltration. Pt makes eye contact, nods or shakes head to yes/no questions, and occasionally says "what?" when spoken to. This RN explains all procedures and updates patient on plan of care. HOB elevated and aspiration precautions maintained. Call light placed in L hand.
--- NOTE | 2021-10-09 19:27 | NUR ---
REPORT RECEIVED FROM JUANCARLOS ST. PATIENT DENIES PAIN AND NAUSEA AT THIS TIME BU SHAKING HIS HEAD NO. PATIENT ATTENDS DRY AND PATIENT HAS NO CURRENT CARE NEEEDS. CALL LIGHT IS IN REACH.
--- NOTE | 2021-10-09 21:40 | NUR ---
CAME IN ABOUT AN HOUR AGO TO DUE VITAL SIGNS AND FOUND THE PATIENT HAD A EXTRA LARGE LIQUIDY/SOFT BROWN BM. PATIENT GOWN AND LINENS CHANGED AND PATIENT GIVEN A PARTIAL BED BED. PATIENT'S PAIN 5/10 AND OXYCODONE AND TYLENOL GIVEN. BOWEL MEDS HELD. PATIENT REPOSITIONED UP HIGH ON HIS REIGHT SIDE HE TENDS TO TURN TO HIS LEFT. DRY ATTENDS AND NEW CHUX IN PLACE. LIGHTS TURNED DOWN AND CALL LIGHT IS IN REACH.
--- NOTE | 2021-10-09 23:25 | NUR ---
PATIENT MOVED BACK TO HIS BACK AND DENIES PAIN AT THIS TIME. PATIENT HAS BEEN SLEEPING. ATTENDS DRY. PATIENT HAD NO OTHER NEEDS AT THIS TIME. CALL LIGHT IS IN REACH.
--- NOTE | 2021-10-10 01:45 | NUR ---
IN TO GET VITALS, PT WAS INCONT OF URINE, BED LINEN WAS ALSO DAMP IN SPOTS, BED CHANGE COMPLETE, NEW CHUX AND ATTENDS IN PLACE, RN IN FOR CARDIAC MEDS, NO FURTHER NEEDS AT THIS TIME
--- NOTE | 2021-10-10 02:11 | NUR ---
PATIENT DENIES PAIN AND NAUSEA BY SHAKING HIS HEAD AT THIS TIME. PATIENT JUST REPOSITIONED AND CLEANED UP BY JUANCARLOS NOVAK AND RAMEZ BARONE. 2AM MEDS GIVEN AND VS STABLE. CALL LIGHT IN REACH AND BEED IN LOW POSITION. PATIENT JUST DRANK ABOUT HALF A CARTON OF ENSURE WITH THIS RN ASSISTING. PATIENT HAS NO FURTHER NOTED NEEDS AT THIS TIME.
--- NOTE | 2021-10-10 04:05 | NUR ---
PATIENT RESTING QUIETLY WITH EYES CLOSED AND REGULAR AND EVEN RESPIRATIONS, ATTENDS ARE DRAW, AND PATIENT HAS TURNED BACK TO HIS LEFT SIDE. CALL LIGHT IS IN REACH AND PATIENT HAS NO OTHER CARE NEEDS AT THIS TIME.
--- NOTE | 2021-10-10 06:16 | NUR ---
PATIENT REPOSITIONED IN BED FLOATED ON PILLOWS BY THIS RN AND RAMEZ BARONE. PATIENT'S DEPENDS ARE DRY AT THIS TIME. PATIENT ONLY HAD THE ONE LARGE BM FOR THE NIGHT. URINE OUTPUT HAS BEEN QUANTITY SUFFICIENT. PATIENT DENIES NAUSEA AND PAIN BY SHAKING HIS HEAD PATIENT JUST DRANK SOME MORE ENSURE WITH HELP FROM RAMEZ BARONE. PATIENT HAS NO OTHER CARE NEEDS AT THIS TIME. CALL LIGHT IS IN REACH.
--- NOTE | 2021-10-10 08:00 | NUR ---
Scheduled medications administered, assessment complete. Pt resting in bed, does not verbally answer questions but nods yes or no. IV ABX infusing. VSS. Insulin administered. Pt eats snack that his daughter brought in from home, when asked if he would like TV on he nods. Swelling to R hand remains unchanged. IV flushes WNL and does not appear infiltrated. HOB elevated. Will continue plan of care
--- NOTE | 2021-10-10 09:30 | NUR ---
Pt repositioned, asks for coffee and responds to questions. VSS. Incontinent void cleaned, attends and pad changed, elsie care done. Swelling to scrotum/groin is improving at this time. Call light in hand
--- NOTE | 2021-10-10 10:45 | NUR ---
Egg crate placed under patient using alberto lift. IV ABX infusing. Pt responds to questions regarding his hometown and uses full sentences.
--- NOTE | 2021-10-10 12:11 | NUR ---
SS insulin provided, lunch in room, set up for patient
--- NOTE | 2021-10-10 14:15 | NUR ---
IV ABX infusing. Pt repositioned to R side with pillows. Attends changed and elsie care done. Pt orders dinner, using full sentences to request items. Scheduled metoprolol and pain medication given. VSS, A+O. Call light in reach.
--- NOTE | 2021-10-10 18:42 | NUR ---
IV ABX infusing, VSS, I/O's complete. Pt has incontinent void and attends changed. Penile edema noted again this evening, bellows charger assembler and MD notified. Pt states no reactions in past related to creams, fragrances, tape, etc. It is painful to the touch. Scrotal area red. Dry attends in place. Hips floated in bed with pillows. Redness to skin improved. Pt nods when asked if more comfortable after placing egg crate mattress. Pt is withdrawn, slow to respond, flat affect. Call light in hand.
--- NOTE | 2021-10-10 19:23 | NUR ---
PATIENT RESTING QUIETLY IN BED IN SEMI-FOWLERS POSITION WATCHING TV. SHIFT REPORT RECEIVED FROM JUANCARLOS TS. PATIENT HAS NO CARE NEEDS AT THIS TIME. CALL LIGHT IS IN REACH.
--- NOTE | 2021-10-10 20:05 | NUR ---
IV ABX COMPLETE, IV SITE FLUSHES EASILY AND IS SALINE LOCKED. BRISK BLOOD RETURN NOTED. NO FURTHER NEEDS VERBALIZED, CALL LIGHT IN REACH AND PRIMARY RN MILTON AWARE.
--- NOTE | 2021-10-10 20:30 | NUR ---
ASSISTED PRIMARY RN MILTON. CHANGED PATIENT'S INCONTINENT ATTENDS. PATIENT REPOSITIONED.
--- NOTE | 2021-10-10 20:45 | NUR ---
PATIENT FSBS WITHIN RANGE SO NO S/S INSULIN. PATIENT DENIES PAIN, BUT IS TENSE AND MOAND WHEN MOVED, ALMOST CONSTANT FACIAL GRIMACE. PM MEDS WITH PAIN MEDICATION GIVE. PATIENT MORE TALKATIVE TONIGHT THAN THE LAST TO NIGHTS AND VERBALL REQUESTED NEW ICE WATER WHICH WAS GIVEN. PATIENT'S ATTENDS CHANGED WITH HELP FROM RAMEZ GAMEZ, PATIENT WAS INCONTINENT OF URINE. PATIENT REPOSITIONED TO THE TOP OF THE BED AND IN SEMI-FOWLERS POSITION. PATIENT HAS NO OTHER CARE NEEDS AT THIS TIME. NOTED THAT PATIENT'S SCROTUM AND PENIS ARE EDEMATOUS AND WAS INFORMED BY JUANCARLOS ST THAT IS AWARE. CALL LIGHT IN REACH AND ROOM LIGHTS TURNED DOWN AT PATIENT'S REQUEST.
--- NOTE | 2021-10-10 21:56 | NUR ---
PATIENT RESTING QUIETLY RELAXED IN BEED WATCHING TV AND DENIES ANY PAIN BY SHAKING HIS HEAD. CALL LIGHT IS IN REACH. ATTENDS DRY. NO OTHER CARE NEEDS AT THIS TIME.
--- NOTE | 2021-10-11 00:01 | NUR ---
PATIENT INCONTINENT URINE AND PERIPADS CHANGED. PATIENT NODS THAT HE IS COMFORTABLE IN BED AND NOT HAVING PAIN. PATIENT HAD NO OTHER NEEDS AT THIS TIME. LIOGHTS TURNED DOWN AND PATIENT IS WATCHING A MOVIE ON TV. CALL LIGHT IS IN REACH.
--- NOTE | 2021-10-11 02:20 | NUR ---
PATIENT WAS INCONTINENT OF URINE AND PERIPADS CHANGED AND PATIENT REPOSITIONED TO HIS LEFT. PATIENT'S RIGHT ARM IS VERY EDEMATOUS AND IS ELEVATED ON PILLOWS. RAC IV SITE DUE FOR ROTATION. 3 ATTEMPTS TO START A NEW IV WERE UNSUCCESSFUL BY THIS RN. CHARGE NURSE AMANDA INFORMED AND SHE IS GOING TO TRY TO GET A NEW SITE.
--- NOTE | 2021-10-11 03:04 | NUR ---
AMANDA CHARGE NURSE SUCCEDED IN GETTING A NEW 20G IV IN THE LEFT WRIST. RAC IV STILL HAS GREAT BLOOD RETURN, SO SALINE LOCKED FOR NOW. PATIENT HAS NEW ICE WATER AND IS EATING A SNACK OF MEAT+CHEESE. PATIENT HAD NO OTHER CARE NEEDS AT THIS TIME. CALL LIGHT IN REACH AND LIGHTS TURNED DOWN AT PATIENT'S REQUEST.
--- NOTE | 2021-10-11 04:00 | NUR ---
RECHECKED ON PATIENT'S NEW IV AND IT IS INFUSING WELL. OLD RIGHT AC IV DC'D INTACT. PATIENT DENIES PAIN AND IS WATCHING TV. PATIENT HAS NO OTHER CARE NEEDS AT THIS TIME. CALL LIGHT IN REACH.
--- NOTE | 2021-10-11 06:01 | NUR ---
PATIENT INCONTINENT AGIN AND PERIPADS CHANGED BY THIS RN WITH ASSISTANCE FROM RAMEZ GAMEZ. PATIENT REPOSITIONED TO HIS RIGHT SIDE. AM ASSESSMENT COMPLETE AND CALL LIGHT IN REACH. BOTH ARMS AND LEGS ELEVATED ON PILLOWS AND PATIENT NODS THAT HE IS COMFORTABLE. LIGHTS TURNED DOWN.
--- NOTE | 2021-10-11 07:28 | NUR ---
REPORT RECIEVED FROM [facility] SCREENER JUANCARLOS.
--- NOTE | 2021-10-11 07:37 | NUR ---
ECHO IN ROOM. PATIENT POSITIONED TO LEFT SIDE.
--- NOTE | 2021-10-11 09:35 | NUR ---
PATIENT REPORTS THAT BACK PAIN IS LESS AFTER PO PAIN MEDICATIONS, ALTHOUGH STILL RATES IT 8/10. IV ABX INFUSING FOR 1 HOUR.
--- NOTE | 2021-10-11 09:50 | NUR ---
Called to confirm placement to [facility]. Spoke with Berkley, they are under executive order from the state and unable to accept pt for at least 15 days. Spoke with Kwame and he is more aware today. UPdated asked if its ok to send his chart to [facility] in [place] and he agrees. Chart faxed with updated weekend notes from and PT.
--- NOTE | 2021-10-11 11:00 | NUR ---
PT AWAKE IN BED. PT RECIEVED PARTIAL BED BATH BUT REFUSED A SHOWER CAP AND NEW GOWN. PT REPOSITIONED IN BED, NEW BRIEF AND RUSH CARE DONE. CALL LIGHT WITHIN REACH. NO FURTHER NEEDS AT THIS TIME.
--- NOTE | 2021-10-11 11:21 | NUR ---
PATIENT IS RESTING IN BED, RECENTLY REPOSITIONED, DENIES NEEDS.
--- NOTE | 2021-10-11 11:21 | NUR ---
IN TO CHANGE AND REPOSTITION PATIENT. RUSH CARE DONE. NEW ATTENDS IN PLACE. PATIENT REPOSITIONED ONTO RIGHT SIDE WITH PILLOWS UNDER LEFT SIDE AND BETWEEN LEGS. LUNCH ORDERED. CALL LIGHT IN REACH. NO FURTHER NEEDS AT THIS TIME.
--- NOTE | 2021-10-11 12:51 | NUR ---
PATIENT WITH POOR APPETITE FOR LUNCH. 5 UNITS PER SLIDING SCALE GIVEN. PLAN TO HOLD SCHEDULED MEALTIME INSULINE UNLESS PATIENT EATS LUNCH.
--- NOTE | 2021-10-11 15:50 | NUR ---
PATIENT RESTING IN BED.
--- NOTE | 2021-10-11 18:27 | NUR ---
PATIENT WITH NEW ATTENDS, RUSH CARE WITH PLAIN WATER. PATIENT HAS INCREASING EDEMA IN SCROTAL AREA THIS EVENING. IV OXACILLIN INFUSING FOR ONE HOUR.
--- NOTE | 2021-10-11 19:29 | NUR ---
REPORT RECEIVED FROM DAY SHIFT RN. PT LYING IN RESTING WITH EYES CLOSED. RESPIRATIONS EVEN. WHITE BOARD UPDATED. CALL LIGHT IN REACH.
--- NOTE | 2021-10-11 20:20 | NUR ---
ASSISTED PRIMARY RN JONATHON. V/S AND I&O'S DONE. CHANGED PATIENT'S INCONTINENT PAD. PATIENT REPOSITIONED. ICAE WATER REFILLED.
--- NOTE | 2021-10-11 20:31 | NUR ---
EVENING ASSESSMENT COMPLETE. SCHEDULED MEDS ADMINISTERED PER EMAR. PT REPORTS BACK PAIN 07/06. SCHEDULED PAIN MEDS ADMINISTERED. PT INCONTINENT OF URINE. 2PA TO CHANGE ATTENDS. RUSH CARE DONE BY STAFF. SCROTAL/PENILE EDEMA NOTED. 2PA TO REPOSITION IN BED. PT NOT ABLE TO PARTICIPATE IN CARES. 2L/NC IN PLACE. PT DENIES FURTHER NEEDS AT THIS TIME. CALL LIGHT IN REACH.
--- NOTE | 2021-10-11 22:32 | NUR ---
CALL LIGHT ANSWERED. INNER TUBE INSERTER IN ROOM TO ASSIST WITH SIPS OF WATER. IV ABX INFUSING PER ORDER. PT DENIES FURTHER NEEDS.
--- NOTE | 2021-10-12 00:48 | NUR ---
IN ROOM TO REPOSITION PT IN BED. FRESH "COLD" WATER PROVIDED PER PT REQUEST. PT REPORTS HE IS RESTING COMFORTABLY. CALL LIGHT IN REACH.
--- NOTE | 2021-10-12 02:07 | NUR ---
SCHEDULED MEDS ADMINISTERED PER EMAR. PT REPORTS BACK PAIN 07/06. SCHEDULED PAIN MEDS PROVIDED. IV ABX INFUSING WNL. PT INCONTINENT OF URINE. 2PA TO CHANGE BRIEF. RUSH CARE DONE BY STAFF. REPOSITIONED IN BED WITH PILLOWS. NO FURTHER NEEDS. CALL LIGHT IN REACH.
--- NOTE | 2021-10-12 02:58 | NUR ---
CALL LIGHT ANSWERED. THIS HOT METAL CRANE OPERATOR AND JUANCARLOS HOLT REPOSITIONED PATIENT TO HIS LEFT SIDE. ICE WATER REFILLED. NO FURTHER NEEDS AT THIS TIME. CALL LIGHT IN REACH.
--- NOTE | 2021-10-12 06:40 | NUR ---
VS AND I&O COMPLETE. IV ABX INFUSING WNL. PT INCONTINENT OF LARGE AMOUNT OF URINE. RUSH CARE DONE. CLEAN BRIEF IN PLACE. PT REPOSITIONED IN BED WITH 2PA. "SAUSAGE" ORDERED PER PT REQUEST FOR BREAKFAST. NO FURTHER NEEDS. CALL LIGHT IN REACH.
--- NOTE | 2021-10-12 07:10 | NUR ---
Report received from Alina BAUER. Pt resting in bed with eyes closed, 2L O2 via NC in place. Resp even and unlabored. No needs identified, will continue plan of care.
--- NOTE | 2021-10-12 08:30 | NUR ---
Spoke with Dr. Florence in 0830 meeting. NO plan for dc today. Awaiting Echo results and blood cultures drawn 10/11. Updated [facility] in [place] have agreed to take this pt.
--- NOTE | 2021-10-12 09:05 | NUR ---
Scheduled medications administered, assessment complete. Pt drowsy, awakens to voice and answers yes/no questions. Edematous to all extremities, 3+, scrotal 2+, R arm and hand 3+. ABD distended and firm upon palpation. Pt reporting 8/10 back pain, medicated. OT in room to talk with patient.
--- NOTE | 2021-10-12 10:30 | NUR ---
PT AWAKE IN BED, REPOSITIONED AND BREIF CHANGED. CALL LIGHT WITHIN REACH. NO FURTHER NEEDS AT THIS TIME.
--- NOTE | 2021-10-12 11:00 | NUR ---
IV ABX infusing. PRN tylenol administered, pt states 8/10 back pain continually. Slow to respond, flat affect. Extremities elevated on pillows. Water refreshed. Call light in reach.
--- NOTE | 2021-10-12 15:27 | NUR ---
Rounded on patient who is sitting up in bed watching tv. Pt reports "yes" after asked if feeling better after BLEACH BOILER FILLER care. He states no needs, no pain at this time. IV ABX infusing WNL.
--- NOTE | 2021-10-12 18:15 | NUR ---
IV ABX infusing. Pt is edematous in all extremities and scrotum. MD notified and desenex powder verbally received, applied to patient's affected areas. All extremities elevated on pillows. Pt encouraged to work with therapies tomorrow. Pt reports pain continues, is tolerable at this time but always present.
--- NOTE | 2021-10-12 18:50 | NUR ---
IN ROOM TO DO VITALS AND I&O'S. PATIENT HAD INCONT. VOID. RUSH CARE DONE. NEW ATTENDS IN PLACE. PATIENT REPOSITIONED ONTO RIGHT SIDE WITH PILLOWS UNDER LEFT SIDE AND LEGS. VITALS AND I&O'S CHARTED BY RN. FRESH WATER GIVEN. CALL LIGHT IN REACH. NO FURTHER NEEDS AT THIS TIME.
--- NOTE | 2021-10-12 19:34 | NUR ---
REPORT RECEIVED FROM DAY SHIFT RN. PT LYING IN BED RESTING WITH EYES CLOSED. RESPIRTIONS EVEN. 2L/NC IN PLACE. WHITE BOARD UPDATED. CALL LIGHT IN REACH.
--- NOTE | 2021-10-12 20:15 | NUR ---
SCHEDULED MEDS ADMINISTERED PER EMAR. PT REPORTS BACK PAIN 07/06. SCHEDULED PAIN MEDS ADMINISTERED. HOB ELEVATED. NO SWALLOWING ISSUES NOTED. VS AND I&O COMPLETE. EVENING ASSESSMENT COMPLETE. 2PA TO REPOSITION IN BED. PT AGREES HE IS COMFORTABLE AT THIS TIME. NO FURTHER NEEDS. CALL LIGHT IN REACH.
--- NOTE | 2021-10-12 22:30 | NUR ---
THIS LEAD [employer]2EE DEVELOPER AND [facility] PATIENT'S INCONTINENT ATTENDS. WIPED WITH WARM WASH CLOTH AND APPLIED POWDER ON GROIN AREA AND BARRIER CREAM ON BUTTOCKS AREA. PATIENT REPOSITIONED. ICE WATER REFRESHED.
--- NOTE | 2021-10-12 22:30 | NUR ---
IN ROOM TO ADMINISTER MEDICATIONS FOR PRIMARY RN JONATHON. PT WOULD NOT ANSWER QUESTIONS ABOUT PAIN FOR REASSESSMENT, FLACC OF 2. PT DID MOAN A LITTLE BIT WITH TURNING WHEN CHANGES HIS ATTENDS. DRY ATTENDS ARE IN PLACE AND FRANCO MYRICK PERFORMED PERICARE WITH WARM WASHCLOTH, NYSTATIN APPLIED TO GROIN AND BARRIER CREAM APPLIED TO OTHER PERIAREAS AND BOTTOM. PT IS FLOATED ON PILLOWS UNDER EACH HIP. COCCYX HAS NOT OPEN AREAS, SLIGHT REDNESS OB BOTTOMFROM WRINKLES IN ATTENDS/BEDDING WHICH IS BLANCHABLE. IV ABX IS INFUSING. PT DENIES FURTHER NEEDS. CALL LIGHT IS CLOSE.
--- NOTE | 2021-10-13 00:47 | NUR ---
PT RESTING IN BED WITH EYES CLOSED. RESPIRATIONS EVEN. CALL LIGHT IN REACH.
--- NOTE | 2021-10-13 01:29 | NUR ---
2 pa CHANGED INCONTINENT PADS. PATIENT REPOSITIONED.
--- NOTE | 2021-10-13 02:08 | NUR ---
SCHEDULED MEDS ADMINISTERED PER EMAR. PT REPORTS BACK PAIN 07/06. SCHEDULED PAIN MEDS ADMINISTERED. PT INCONTINENT OF URINE. RUSH CARE DONE BY STAFF. CLEAN PAD PLACED. 2PA TO REPOSITION IN BED. PT AGREES HE IS COMFORTABLE AT THIS TIME. CALL LIGHT IN REACH.
--- NOTE | 2021-10-13 05:52 | NUR ---
VS AND I&O COMPLETE. IV ABX INFUSING WNL. PT INCONTINENT OF URINE. RUSH CARE DONE. CLEAN BRIEF PLACED. 2PA TO REPOSITION IN BED. BREAKFAST ORDERED. NO FURTHER NEEDS. CALL LIGHT IN REACH.
--- NOTE | 2021-10-13 07:32 | NUR ---
SHIFT REPORT FROM NURSE HOLT. PT IN BED, DROWSY, RESPONDS TO NAME. NO IMMEDIATE NEEDS AT THIS TIME, CALL LIGHT WITHIN REACH.
--- NOTE | 2021-10-13 08:20 | NUR ---
IN ROOM FOR MORNING MEDS. PT IS SLOW TO RESPOND BUT DOES ANSWER QUESTIONS. METOPROLOL HELD D/T LOW BP (99/53) HR 57. EXTREMITIES AND PENIS/SCROTUM REMAIN EDEMATOUS. LT GREAT TOE IS DARKENED; HAS GOOD CAP REFILL AND PT REPORTS NO PAIN. NEW BRUISE NOTED ON LT UPPER ARM. CBG 172 REQUIRING 1U SS INSULIN. PT REPORTS NO PAIN BUT SCHEDULED APAP GIVEN. WILL CONTINUE TO MONITOR.
--- NOTE | 2021-10-13 09:16 | NUR ---
Patient refused am care. Patient recieved breakfast and needed some assistence. Patient needed help with utensils. Sometimes the patient feels more inclined to eat finger food with his thumb and pointer finger. Patient was able to grasp the ensure, but needed assistence with putting a straw into it to drink it without further assistence.
--- NOTE | 2021-10-13 09:47 | NUR ---
IN ROOM FOR NEXT SCHEDULED MEDS. REPOSITIONED PT AND CHANGED ATTENDS WITH HELP FROM RAMEZ PADRON. PT TOLERATED OK, MOBILITY IS LOW AND UNABLE TO LOWER HOB WITHOUT CAUSING BACK PAIN FOR PT. PT POSITIONED TO LT TILT WITH PILLOW UNDER RT HIP. PT IS DRINKING WELL, TAKES PILLS WITH NO SIGNS OF ASPIRATION. CALL LIGHT WITHIN REACH. WILL CONTINUE TO MONITOR.
--- NOTE | 2021-10-13 10:00 | NUR ---
Update from Dr. Florence, pt will need to transfer to a high level of care. She is contacting [facility]. Called and updated [facility] pt will not need the bed they are holding. Called daughter and updated pt agreed to go to a higher level of care and she is happy with this. Let her know awaiting hospital to accept this pt. Attempted to see pt. He is resting with his eyes closed. Not awakened.
--- NOTE | 2021-10-13 11:01 | NUR ---
IN ROOM IV ABX FINISHED INFUSING. PT INFORMED OF UPCOMING CT; PT NODS UNDERSTANDING. RAMEZ PADRON IN ROOM. CALL LIGHT WITHIN REACH.
--- NOTE | 2021-10-13 11:22 | NUR ---
Patient was repositioned and was given elsie care, 2PA.
--- NOTE | 2021-10-13 11:50 | NUR ---
PT OFF FLOOR TO CT. PT WAS TRANSPORTED BY STRETCHER WITH RADIOLOGY STAFF.
--- NOTE | 2021-10-13 12:45 | NUR ---
PT IS BACK ON FLOOR. WITH HELP FROM 2ND RN, PT BOOSTED IN BED WITH DEYA LIFT. CBG 143 REQUIRING 1UNIT SS INSULIN ALONG WITH 8UNITS SCHEDULED INSULIN. PT WAS DRINKING ENSURE. CALL LIGHT AND LUNCH TRAY WITHIN REACH.
--- NOTE | 2021-10-13 13:10 | NUR ---
CALL LIGHT ANSWERED. PT REQUESTS FRESH WATER. ORAL CARE PERFORMED ALONG WITH CHAPSTICK. PT HAD DRUNK ENSURE BUT DID NOT EAT ANY OF MEAL. CALL LIGHT WITHIN REACH, BEDSIDE TABLE WITHIN REACH.
--- NOTE | 2021-10-13 14:00 | NUR ---
IN ROOM FOR SCHEDULED MEDS, PT REPORTS 8/10 PAIN IN HIS BACK. SCHEDULED OXYCODONE GIVEN. PT REPOSITIONED TO BACK, IV ABX INFUSING PER ORDER. NO FURTHER NEEDS AT THIS TIME. CALL LIGHT WITHIN REACH
--- NOTE | 2021-10-13 15:00 | NUR ---
Patient's vitals are complete. Patient had an ensure for lunch. Call light is in reach.
--- NOTE | 2021-10-13 16:00 | NUR ---
REPORT RECEIVED FROM JUANCARLOS MONTESINOS, PT RESTING IN BED SAFELY W/ CALL LIGHT IN REACH NO NEEDS AT THIS TIME
--- NOTE | 2021-10-13 18:09 | NUR ---
PT SITTING UP IN BED SAFELY W/ CALL LIGHT IN REACH, PT EATING DINNER, IV ABX HUNG AND INFUSING PER PROVIDER ORDER, FRESH ICE WATER AND ENSURE GIVEN PER PT REQUEST, NO FURTHER NEEDS AT THIS TIME
--- NOTE | 2021-10-13 19:04 | NUR ---
Patient was turned and breif was changed with elsie care. Call light is in reach.
--- NOTE | 2021-10-13 19:28 | NUR ---
RECEIVED REPORT, PT IS AWAKE IN BED WATCHING TV. HE DENIES NEEDS AT THIS TIME. CALL LIGHT IS CLOSE.
--- NOTE | 2021-10-13 19:45 | NUR ---
IN TO GET VITALS, NO FURTHER NEEDS AT THIS TIME, PT HAD TABLE AND FRESH MCCLOUD IN REACH
--- NOTE | 2021-10-13 20:16 | NUR ---
IN ROOM TO ASSESS PT AND ADMINISTER MEDICATIONS. PT REPORTS PAIN 8/ ADMINISTERED SCHEDULE OXYCODONE. PT RECENTLY CHANGED ATTENDS ARE DRY. EDUCATED PT ON COUGHING/DEEP BREATHING. PT HAS FLAT AFFECT BUT IS ANSWERING QUESTIONS APPROPRIATLY IN SHORT SENTANCES. PT DENIES NEEDS AT THIS TIME. CALL LIGHT IS CLOSE.
--- NOTE | 2021-10-13 21:38 | NUR ---
PT IS RESTING WITH EYES CLOSED, RR IS EVEN AND NONLABORED. CALL LIGHT IS CLOSE.
--- NOTE | 2021-10-13 22:40 | NUR ---
IN ROOM TO START IV ABX. PT REPORTS PAIN AT 8/10, ADMINISTERED PO TYLENOL. CHANGED PAD IN PT'S ATTENDS IT WAS WET WITH HELP OF RAMEZ BARONE. REPOSITIONED PT TO FLOAT ON PILLOWS UNDER BOTH HIPS. PT DENIES FURTHER NEEDS AT THIS TIME. CALL LIGHT IS CLOSE.
--- NOTE | 2021-10-14 00:42 | NUR ---
REMOVED PILLOW FROM UNDER PT'S R HIP, IV ABX IS COMPLETE AND IV IS SL. PT IS RESTING WITH EYES CLOSED, RR IS EVEN AND UNLABORED. CALL LIGHT IS CLOSE.
--- NOTE | 2021-10-14 02:00 | NUR ---
IN TO ET VITALS, PT INCONT OF URINE, NEW PERIPAD IN PLACE, NEW CHUX IN PLACE AND ON THE LEFT SIDE, PT REQUESTING TO REPOSTITON TO LEFT SIDE, PILLOWS AT BACKSIDE FOR SUPPORT AND BETWEEN KNEES, FRESH ICE WATER PROVIDED AT THIS TIME, NO FURTHER NEEDS
--- NOTE | 2021-10-14 02:28 | NUR ---
IN ROOM TO ADMINISTER MEDICATIONS. PT REPORTS BACK PAIN AT 8/10, SCHEDULE OXYCODONE GIVEN. PT WAS JUST CHANGED AND REPOSITIONED. IV ABX IS INFUSING. PT DENIES FURTHER NEEDS AT THIS TIME. CALL LIGHT IS CLOSE.
--- NOTE | 2021-10-14 04:17 | NUR ---
PT IS RESTING IN BED, IV PUMP WAS BEEPING IV ABX ARE COMPLETE. PT DENIES NEEDING TO BE REPOSITIONED AT THIS TIME. HE HAS PILLOWS UNDER HIS R SIDE/BACK. CALL LIGHT IS CLOSE AND PT DENIES NEEDS AT THIS TIME.
--- NOTE | 2021-10-14 06:38 | NUR ---
IN ROOM TO ADMINISTER IV ABX, CHANGED PT'S ATTENDS WITH EMELY BARONE. PT HAD MED SOFT BM AND INCONTINENT OF URINE. RESPOSITIONED PT WITH HIPS FLOATED ON PILLOWS. PT'S RR IS 24 ON 2LNC AT 91% SPO2 MSG SENT TO DR AVILA. PT DENIES SOB AND DENIES FURTHER NEEDS AT THIS TIME. CALL LIGHT IS CLOSE.
--- NOTE | 2021-10-14 08:00 | NUR ---
DIGOXIN DUE AND NO DIGOXIN LABS DRAWN SINCE 10/06. ASKED AND APPROVED ADMINISTRATION.
--- NOTE | 2021-10-14 08:13 | NUR ---
IN TO CHECK ON PT. PT SITTING IN BED WITH HOB AT 42 DEGRESS WATCHING TV. PT ALERT AND ORIETNED PER BASLINE. PLEASNAT AND COPERATIVE WITH SATAFF ANDC LENY. MEDICATIOSN AND ASSESSMETN DUE. ACAPELLA USED WITH ENCOURGAEMENT. PT WITH BREAKFAST AT BEDSIDE. PT CONTINUES TO HAVE A POOR APPETITE. ANSWER QUESTIONS APPROPIATELY. GUANACO PAIN AND DISCOMFORT AT HIS TIME. VS OBTAINED. NO OTHER CONCERS OR REQUESTS AT THIS TIME. BED X 4 UP , CALL LIGHT IN REACH.
--- NOTE | 2021-10-14 08:30 | NUR ---
Per Dr Florence in 829 report, pt has been accepted by [facility] and awaiting bed.
--- NOTE | 2021-10-14 09:23 | NUR ---
PHYSICAL THERAPISTS AND MANUAL CONTROL AUGER PRESS OPERATOR IN WITH PT AT THIS TIME. PT TRANSFER TO CHAIR WITH GAIT BELT AND WALKER. MANUAL CONTROL AUGER PRESS OPERATOR REPORTS PT TOLERATED IT OK. CALL LIGHT IN REACH.
--- NOTE | 2021-10-14 09:30 | NUR ---
Spoke with Kwame. Rn and OT in the room. He states no, when I say good morning. Rn attempting to get him to take meds. OT states pt was able to stand pivot with 2 person assist to chair. He does not want to be up, orders in report per Dr. Florence are for pt to get out of bed and work with therapies.
--- NOTE | 2021-10-14 10:26 | NUR ---
0915: HELPED NURSE AND PT USE GAIT BELT AND WALKER TO TRANSFER PATIENT TO CHAIR. PATIENT APPEARED UNCOMFRTABLE. 1000: VARNISH THINNER TOOK VITAL SIGNS. PATIENT REPORTS PAIN IN CHAIR. PATIENT RATES PAIN A 9/10 IN SEVERITY AND MENTIONS THE NEED OF PAIN MEDICATION. PATIENT WAS GIVEN 500 MG OF TYLENOL PRN WITH NURSE AT BEDSIDE. PATIENT WAS GIVEN OXACILLIN 2 MG IV PERSCRIBED.
--- NOTE | 2021-10-14 11:50 | NUR ---
IN TO CHECK ON PT, PT UP IN CHAIR WATCHING TV. PT WITH FLAT AFFECT. PT REPORTS PAIN 9/10 IN BACK. PREVIOUS TYLENOL INEFFECTIVE. PT REQUEST TO GET BACK IN BED. NO OTHER CONCERNS OR REQUESTS AT THIS TIME.
--- NOTE | 2021-10-14 12:05 | NUR ---
IN TO SEE PT. MEDICATIONS DUE. LUNCH ON BEDSIDE TABLE. PT ACCEPTED 50% LUNCH. INSULIN GIVEN PER ORDER. PT WATCHING TV AT THIS TIME. NO OTHER REQUESTS OR CONCERNS AT THIS TIME. CALL LIGHT IN REACH.
--- NOTE | 2021-10-14 13:18 | NUR ---
in to check on pt. pt up in chair at his ceferino watching tv. assisted pt to transfer sba with gait belt abd walker with JUANCARLOS amaro back to bed. . brief changed, elsie care provided and dessonex powder applied. pt continues to have pain 9/10 to back. fresh water provided. no other concerns or requests at this time.
--- NOTE | 2021-10-14 13:24 | NUR ---
PT. CONSISTENTLY REPORTING 08/06 BACKPAIN WITH SCHEDULED OXYCODONE. MD UPDATED AND WILL ADDRESS WHEN ROUNDING ON HIM
--- NOTE | 2021-10-14 13:53 | NUR ---
PT ASLEEP IN CHAIR, DID NOT DISTURB. WILL FOLLOW
--- NOTE | 2021-10-14 14:20 | NUR ---
1400: UPON ENTRY TO PATIENT'S ROOM, PATIENT WAS RESTING COMFORTABLY IN BED WITH EYES CLOSED. TOOK PATIENT'S VITAL SIGNS. PATIENT REPORTS PAIN AN 8/10 IN SEVERITY FOR WHICH SCHEDULED OXYCODONE WAS GIVEN. PATIENT RECEIVED SCHEDULED LOPRESSOR AND OXACILLIN. MEDICATIONS WERE GIVEN WITH NURSE AT [facility].
--- NOTE | 2021-10-14 15:10 | NUR ---
IN TO CHECK ON PT, ASSESSMENT DUE. PT RESTING WITH EYES CLOSED HOB ELEVATED AT 28 DEGREES. PT REPORTS HE IS MORE COMFORTABLE. NO OTHER COCNERS OR REQUEST AT THIS TIME. CALL LIGHT IN REACH.
--- NOTE | 2021-10-14 15:32 | NUR ---
PT. WEIGHT HAS INCREASED 20LB SINCE 10/03 AND GENERALIZED EDEMA PRESENT. MD UPDATED AND 20MG IV LASIX ONE TIME ORDERED OVER PHONE.
--- NOTE | 2021-10-14 17:31 | NUR ---
IN TO CHECK ON PT MEDICATIONS DUE. PT BRIEF CHANGED, LARGE BM. RUSH CARE COMPLETED. INC VOID X 2. DRW SHEET AND GOWN CHANGED. NO OTHER CONCERNS OR REQUESTS AT THIS ITME. BED RAILS X 4 UP . CALL LIGHT IN REACH.
--- NOTE | 2021-10-14 17:54 | NUR ---
pt here for NICHOLAS, with hypotention and syncopal episode that brought him into the ER. pt is alert and oreitned x 3. pt recieving ivf d51/2ns with potassium continuous. iv to right hand flushing well. no s/sx phelibitis or infiltration. VSS. pt refused evening md tim aware. stool sample collected, sent to lab. independent in room. was here 10/05 diverticulitis, when he tested positive for covid.
--- NOTE | 2021-10-14 19:10 | NUR ---
shift report received from dayshift rn diaz and lucie at bedside. pt awake and resting in bed, 2lnc in place. rr even and unlabored. iv abx infusing as directed, iv site wnl. no needs verbalized at this time, call light in reach and board updated.
--- NOTE | 2021-10-14 21:55 | NUR ---
ASSESSMENT COMPLETE, SCHEDULED MEDS GIVEN (SEE EMAR). pt VERY QUIET AND FLAT IN APPEARANCE, ANSWERS QUESTIONS WITH VERY SHORT OR ONE OR TWO ANSWERS. VSS, pt ON 2LNC. IV ABX INFUSING DIRECTED, IV SITE WNL WITH BRISK BLOOD RETURN NOTED. pt HEAVILY INCONTINENT OF URINE AND A LARGE LOOSE BM. WITH HELKP FROM RAMEZ BARONE, RUSH CARE DONE WITH BARRIER CREAM AND POWDER APPLIED. SKIN INTACT TO BUTTOCKS, NO REDDNESS NOTED. SCROTUM AREA REDDENED WITH GENERALIZED EDEMA, SCROTUM ELEVATED WITH CLEAN ATTENDS IN PLACE. BILATERAL HIPS FLOATED ALONG WITH BLE. BLACKENED AREA NOTED TO BACK OF LEFT BIG TOE ON THE TOE PAD, SIZE APPROX OF A QUARTER. REDDENED AREA NOTED AROUND TOE NAIL, CAPILLARY REFILL TIME BRISK AND WNL. WHEN ASKED, pt STATES, "YEAH WHEN THEY'RE FILING MY NAILS". CMS INTACT TO BLE, WILL CONTINUE TO MONITOR. NO FURTHER NEEDS, CALL LIGHT IN REACH AND BED ALARM ON.
--- NOTE | 2021-10-14 23:45 | NUR ---
pt SALINE LOCKED, IV SITE WNL AND BRISK BLOOD RETURN NOTED. pt REPSOTIONED IN BED, PILLOWS REMOVED FROM RIGHT HIP. NO ADDITIONAL NEEDS VERBALIZED, CALL LIGHT IN REACH.
--- NOTE | 2021-10-15 00:40 | NUR ---
photo consent collected from pt to take photos of left big toe, photos taken and placed in chart. charge weigher becky also visualized left big toe. message sent to dr villanueva regarding left big toe.
--- NOTE | 2021-10-15 02:30 | NUR ---
pt BOOSTED IN BED AND REPOSITIONED, PILLOW UNDER LEFT SIDE. INCONTINENT OF BOTH BM AND URINE. RUSH CARE DONE AND CLEAN ATTENDS IN PLACE. IV ABX INFUSING DIRECTED, IV SITE WNL WITH BRISK BLOOD RETURN. ASSESSMENT COMPLETE, NO ACUTE CHANGES. CALL LIGHT IN REACH AND BED ALARM ON.
--- NOTE | 2021-10-15 03:20 | NUR ---
VSS, SCHEDULED PO PAIN MEDICATION AND SCHEDULED PO CARDIAC MEDICATION GIVEN, SEE EMAR. 2LNC REMAINS IN PLACE. MEDS GIVEN WITHOUT ISSSUE. pt REPORTS GENERALIZED PAIN, BUT DOES NOT RATE PAIN ON PAIN SCALE. WILL CONTINUE TO MONITOR. CALL LIGHT IN REACH AND BED ALARM ON.
--- NOTE | 2021-10-15 04:12 | NUR ---
IV ABX COMPLETE, IV SITE WNL AND SALINE LOCKED. NO ADDITIONAL NEEDS VERBALIZED. CALL LIGHT IN REACH AND BED ALARM ON.
--- NOTE | 2021-10-15 05:32 | NUR ---
DAILY WEIGHT COMPLETE VIA BED. WEIGHT DONE WITH pt IN BED, 2 PILLOWS, CHUCKS X2, DRAW SHEET, FITTED SHEET, DEYA LIFT (GREEN), AND WILLAMS TRANSFER MAT. VSS, 2LNC IN PLACE. pt INCONTINENT OF URINE, RUSH CARE DONE AND DRY ATTENDS IN PLACE. BILATERAL HIPS FLOATED, NO BM NOTED. CALL LIGHT IN REACH. BED ALARM ON FOR SAFETY.
--- NOTE | 2021-10-15 06:45 | NUR ---
lab in room attempting to collect blood culture and am labs. multiple attempts unsuccessful, enough blood for cultures. tournniquet removed by lab. am labs collected from iv site, brisk blood return noted. new clave in place and iv site flushed with 15mls before starting scheduled iv abx. iv site wnl. no further needs, call light in reach and bed alarm on.
--- NOTE | 2021-10-15 07:20 | NUR ---
IN TO CHECK ON PT, BEDSIDE HAND OFF REPORT GIVEM PT RESTING WITH EYES CLOSED IN BED WITH HEAD OF BED ELEVATED, BED RAILS X 4 UP, CALL LIGHT IN REACH.
--- NOTE | 2021-10-15 08:48 | NUR ---
IN TO CHECK ON PT. AM MEDICATIONS AND ASSESSMENT DUE. PT LAYING IN BED WITH HOB AT 39DEGREES. PT ALERT AND OREITNED TO SELF. ANSWERING QUESTIONS APPROPIATELY. LAXATIVES HELD TTHIS AM DUE TO MULTIPLE EPISODES OF LOOSE STOOLS. PT COTINUES TO HAVE EDEAMA TO EXTREMITIES, LEFT LEG WITH 3+ PITTING EDEMA AND RIGHT LEG WITH 2+ PITTING EDEMA. SCROTUM REMIAN EDETAMOUS AT THIS TIME. RUE EXTREMITY DECREASED EDEMA SINCE ONE TIME DOSE LASIX YESTERDAY. PUPILS ROUND AND REACTIVE. HRR, LUNGS CLEAR/DIMINISHED. BT X4. IV FLUSHIGN WELL. NO PAIN, BLODD RETURN, NO S/S OF INFILTRATION OR PHELIBITIS AT THIS ITME. VALENTIN CEJA IN TO PROVIDE CARES AT THIS TIME. PT AGREEABLE TO SHOWER THIS AM. NO TOEHR COCNERNS OR REQUESTA THIS TIME. BED RAILS TIMES 4 UP. CALLL IGHT IN REACH.
--- NOTE | 2021-10-15 10:19 | NUR ---
Mr Mariee is up in his chair this morning, watching t.v. He does look at me when spoken to, however he does not answer questions when asked. He is responsive to the television, is noted changing channels on the terlevision. When asked if he needs anything he shakes his head no. His respirations are even and unlabored, no grimmace noted in his facial expression. The C.N.A is currently in the room, his bed has been changed, room is clean, patient appears clean and well kept. Pt does take drinks of water out of his cup which is on his bedside table, and he call light is in his hand.
--- NOTE | 2021-10-15 10:46 | NUR ---
Patient is in chair with call light in reach. PTOT is in the room. Patient via 3PA pivot to shower chair to the bathroom and then to chair via shower chair then pivot FWW to chair in room. Bed linen was changed.
--- NOTE | 2021-10-15 11:27 | NUR ---
in to check on pt. pt sitting uop in chair watching tv. with legs elevated. pt reports pain to back 07/06. scheduled pain medications given at this time. scheduled oxacilling runnign at this time. no othe cocners or requests at this itme. call light in reach.
--- NOTE | 2021-10-15 12:24 | NUR ---
IN TO CHEK ON PT. INSULIN DUE AT THIS TIME. INSULIN ADMINISTERED BY STRIP TANK TENDER. PT UP IN CHAIR, LEG ELEVATED. [facility] NO OTHER CONCERNS OR REQUESTS AT THIS TIME. CALL LIGHT IN REACH.
--- NOTE | 2021-10-15 12:30 | NUR ---
DR FERNANDEZ IN TO ROUND ON PT. PT UPDATED ON PLAN OF CARE. PT CONTINUED EATING LUNCH DURING PROVIDERS VISIT. NO QUESTIONS BY PT AT THIS TIME.
--- NOTE | 2021-10-15 13:05 | NUR ---
CALL MADE TO STAS ZHANG TO INFORM HER THAT PT WILL BE TRANSFERED TO [facility] WHEN TRANSPORT IS AVAILABLE. NO ADDITIOANL QUESTIONS AT THIS TIME. SHE THANKED THIS NURSE FOR THE CALL.
--- NOTE | 2021-10-15 13:49 | NUR ---
DIETARY IS SENDING AN ENSURE WITH MOST MEALS. PATIENT'S APPETITE IS NOT GREAT. HE IS ON A 60 GM CONSISTENT CARB DIET.
--- NOTE | 2021-10-15 14:00 | NUR ---
Notified by furnace charger, pt has been accepted by [facility] and will transport per EMS this afternoon. Scout Sniper will call the daughter.
--- NOTE | 2021-10-15 14:20 | NUR ---
RAPID COVID TEST DONE PER DR ORDER. COVID TEST COLLECTED FROM BOTH NARES. LEFT SIDE HAD OBSTRUCTION. RIGHT SIDE WAS GOOD. PT TOLERATED WELL.
--- NOTE | 2021-10-15 16:30 | NUR ---
EMS ARRIVED TO FACILITY TO DRESSAGE INSTRUCTOR PT TO TRANSPORT TO [facility]. PT LEFT VIA STRCHER. ALL PT BELONGING WITH PT ON DISCHGARGE. PT ACCOMPANIED BY EMS STAFF. REPORT CALLED TO [facility] BY THIS NUSRE. HAND OFF REPORT GIVEN TO JUANCARLOS HIGHTOWER.
== END 2021-10-15 16:30 | disposition short-term general hospital (02) | DRG 871 ==
LOC: ED 20:53 → CCU 10-03 00:34 → MS 10-03 00:34
PROVIDERS: ADMIT Internal Medicine; ATTEND Internal Medicine
DX: A41.01 Sepsis due to Methicillin susceptible Staphylococcus aureus (principal); I50.23 Acute on chronic systolic (congestive) heart failure; K68.12 Psoas muscle abscess; N17.9 Acute kidney failure, unspecified; I42.8 Other cardiomyopathies; I69.351 Hemiplegia and hemiparesis following cerebral infarction affecting right dominant side; N30.00 Acute cystitis without hematuria; I38 Endocarditis, valve unspecified; Z20.822 Contact with and (suspected) exposure to COVID-19; R65.20 Severe sepsis without septic shock; I48.91 Unspecified atrial fibrillation; M54.50 Low back pain, unspecified; I25.10 Atherosclerotic heart disease of native coronary artery without angina pectoris; G89.29 Other chronic pain; E11.65 Type 2 diabetes mellitus with hyperglycemia; N21.0 Calculus in bladder; Z79.84 Long term (current) use of oral hypoglycemic drugs; Z79.899 Other long term (current) drug therapy
CPT/HCPCS: 51702; 71045; 71260; 72158; 74176; 74178; 80048; 80053; 80162; 81001; 82570; 83036; 83605; 83690; 83735; 83880; 84300; 85007; 85025; 85651; 87040; 87077; 87088; 87186; 93005; 93010; 93306; 94667; 94668; 94760; 97110; 97162; 97163; 97166; 97530; 99285-25; A9270; A9577; C9803; J0696; J1160; J1650; J1815; J1940; J2270; J2405; J2700; J3475; J7030; J7121; Q9957; Q9967; U0003